=== PATIENT | male | born 1950 | race Caucasian/White ===

== ENCOUNTER 2020-12-30 11:45 | Day surgery (SDC) | payer MEDICARE, SELFPAY ==
[2020-12-30] VITALS (9 sets, daily range): BP systolic 95–177; BP diastolic 50–100; PULSE 78–108; RESP 15–22; TEMP 36.5–36.8; O2SAT 92–100
--- NOTE | ~2020-12-30 | XR_ITS ---
EXAMINATION: XR barium swallow DATE: 12/30/2020 12:49 INDICATION: Dysphagia. TECHNIQUE: The patient drank water-soluble contrast. Fluoroscopy of the hypopharynx and esophagus was performed. Fluoroscopy exposure time was 0.1 minutes. The total number of images was 4. The dose-are a product was 0.343 Gy-cm^2. COMPARISON: None. FINDINGS: The patient drank contrast and approximately vomited. There is an endoluminal mass in the m id esophagus that obstructs flow of contrast. IMPRESSION: 1. Endoluminal mass in the mid esophagus that obstructs flow of contrast, consistent with foreign bod y versus malignancy. Reviewed, dictated and finalized at location A. IMPRESSION: 1. Endoluminal mass in the mid esophagus that obstructs flow of contrast, consi stent with foreign body versus malignancy.
[2020-12-30 12:23] LABS: Basophils Absolute Auto 0.1 K/mm3 (0.0-0.1); Eosinophils Percent Auto 0.1 % (0-4.4); Hematocrit 44.1 % (42.0-52.0); Hemoglobin 14.5 g/dL (14.0-18.0); Immature Granulocyte Absolute 0.03 K/mm3 (0.00-0.031); Immature Granulocyte Percent A 0.3 % (0-0.5); Lymphocytes Absolute Auto 1.88 K/mm3 (0.9-3.2); Lymphocytes Percent Auto 18.3 % (18.3-44.2); Mean Corpuscular HGB Conc 32.9 g/dl (32-36); Mean Corpuscular Hemoglobin 29.1 pg (26-34); Mean Corpuscular Volume 88.4 fl (80-100); Monocytes Absolute Auto 0.9 K/mm3 (0.1-0.6); Monocytes Percent Auto 8.9 % (2.6-8.5); Neutrophils Absolute Auto 7.3 K/mm3 (1.3-6.7); Neutrophils Percent Auto 71.4 % (45.5-73.1); Platelet Count Result 355 k/mm3 (150-375); Red Blood Count 4.99 M/mm3 (4.6-6.20); Red Cell Distribution Width 16.9 % (11.5-14.5); White Blood Count 10.3 K/mm3 (4.5-10.0)
[2020-12-30 12:32] LABS: Alanine Aminotransferase 24 U/L (4-50); Albumin Level 4.5 g/dL (3.5-5.1); Alkaline Phosphatase 105 U/L (38-126); Anion Gap 8 mmol/L (8-16); Aspartate Amino Transferase 52 U/L (17-59); Bilirubin,Total 1.4 mg/dL (0.2-1.3); Blood Urea Nitrogen 12 mg/dL (9-20); Calcium 8.9 mg/dL (8.4-10.2); Carbon Dioxide 29 mmol/L (22-30); Chloride 105 mmol/L (98-107); Estimated CRCL calculation 74 ml/min; Estimated Glomerular Filt Rate > 60; Glucose 101 mg/dL (75-110); Lipase 34 U/L (23-300); Sodium 142 mmol/L (137-145)
[2020-12-30 12:38] LABS: Platelet Estimate Adequate (Adequate)
[2020-12-30 12:39] LABS: Poikilocytosis 1+ (NORMAL); Stomatocytes 1+ (NORMAL)
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
[2020-12-30] MEDS: LACTATED RINGERS 1,000 ML 150 ML IV CONT (14:52)
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
== END 2020-12-30 17:00 | disposition home or self-care (01) ==
LOC: ANHED 13:13 → ANHENDO 13:20
PROVIDERS: Emergency Provider Emergency Medicine; PCP Internal Medicine; Visit Provider Internal Medicine Gastroenterology
PROC: 0DJ08ZZ Inspection of Upper Intestinal Tract, Via Natural or Artificial Opening Endoscopic (ICD-10-PCS; CPT 43235; principal; 2020-12-30 14:30)
DX: T18.128A Food in esophagus causing other injury, initial encounter (principal); K21.00 Gastro-esophageal reflux disease with esophagitis, without bleeding; R11.2 Nausea with vomiting, unspecified; E03.9 Hypothyroidism, unspecified; E78.00 Pure hypercholesterolemia, unspecified; K29.70 Gastritis, unspecified, without bleeding
CPT/HCPCS: 43247; 43239; 36415; 74220; 80053; 83690; 85025; 87081; 88305; 96360; 99285; J2704; J7120

== ENCOUNTER 2022-08-27 11:54 | Outpatient (CLI) | payer MEDICARE, SELFPAY ==
[2022-08-27 18:23] LABS: Creatinine Urine 63.1 mg/dL
[2022-08-27 18:31] LABS: MALB Creatinine Ratio < 9.5 mg/g (0-30); Microalbumin Urine Random < 6.0 mg/L (0-16.7)
[2022-08-27 18:41] LABS: Alanine Aminotransferase 20 U/L (6-50); Albumin Level 4.4 g/dL (3.5-5.1); Alkaline Phosphatase 106 U/L (38-126); Anion Gap 7 mmol/L (8-16); Aspartate Amino Transferase 37 U/L (17-59); Blood Urea Nitrogen 9 mg/dL (9-20); Carbon Dioxide 30 mmol/L (22-30); Chloride 103 mmol/L (98-107); Estimated Glomerular Filt Rate > 60; Glucose 88 mg/dL (65-110); Potassium 4.1 mmol/L (3.4-5.0); Sodium 140 mmol/L (137-145)
== END 2022-08-27 11:55 | disposition home or self-care (01) ==
LOC: ANHGOSHLAB 11:55
PROVIDERS: PCP Internal Medicine; Visit Provider Nurse Practitioner
DX: M79.89 Other specified soft tissue disorders (principal)
CPT/HCPCS: 36415; 80053; 82043

== ENCOUNTER 2022-08-27 15:44 | Outpatient (CLI) | payer MEDICARE, SELFPAY ==
--- NOTE | ~2022-08-27 | US_ITS ---
Duplex Sonography of the bilateral lower extremities: Indication: Swelling, soft tissue disorder Sagittal and transverse B-mode images as well as color-flow imaging were performed on the right and l eft femoral and popliteal veins. B-mode examination was done without and with compression in the tra nsverse plane. There is good visualization of the bilateral common femoral, proximal profunda femora l, superficial femoral, greater saphenous, and popliteal veins. Normal flow was seen on color-flow im aging. Normal compressibility was demonstrated. Visualized calf veins bilaterally are also patent. Extensive subcutaneous soft tissue edema present, nonspecific. Prominent bilateral groin lymph nodes are noted, though with preserved fatty mikayla. Impression: No evidence of deep vein thrombosis involving the bilateral femoral, greater saphenous, superficial f emoral, or popliteal veins. Nonspecific subcutaneous soft tissue edema bilaterally. Prominent bilateral groin lymph nodes with preserved fatty mikayla, nonspecific. Reviewed, dictated and finalized at [facility]. RAM DIRECTOR/TRAFFIC DIRECTOR Impression: No evidence of deep vein thrombosis involving the bilateral femoral, greater sa phenous, superficial femoral, or popliteal veins. Nonspecific subcutaneous soft tissue edema bilaterally. Prominent bilateral groin lymph nodes with preserved fatty mikayla, nonspecific.
== END 2022-08-27 15:45 | disposition home or self-care (01) ==
PROVIDERS: PCP Internal Medicine; Visit Provider Nurse Practitioner
DX: M79.606 Pain in leg, unspecified (principal); R60.0 Localized edema; M79.89 Other specified soft tissue disorders
CPT/HCPCS: 36415; 80053; 82043; 93970

== ENCOUNTER 2022-09-05 08:52 | Outpatient (CLI) | payer MEDICARE, SELFPAY ==
--- NOTE | ~2022-09-05 | US_ITS ---
Limited Abdominal Sonogram: Real-time sonographic imaging of the right upper quadrant was performed. Clinical History: Abdominal swelling Findings: The liver appears normal with no evidence of mass lesion or bile duct dilatation. Main por lesli vein demonstrates normal direction of flow. The gallbladder is well distended, and and contains e chogenic gallstones. No gallbladder wall thickening. The common bile duct measures 3 mm. The pancrea s and aorta obscured by bowel gas shadowing. Impression: Cholelithiasis. Reviewed, dictated and finalized at location [facility]. AND SOIL TECHNICIAN Impression: Cholelithiasis.
== END 2022-09-05 08:53 | disposition home or self-care (01) ==
LOC: ANHIMG 08:58
PROVIDERS: PCP Internal Medicine; Visit Provider Nurse Practitioner
DX: R19.00 Intra-abdominal and pelvic swelling, mass and lump, unspecified site (principal); K80.20 Calculus of gallbladder without cholecystitis without obstruction
CPT/HCPCS: 76705

== ENCOUNTER 2022-09-17 08:52 | Outpatient (CLI) | payer MEDICARE, SELFPAY ==
--- NOTE | 2022-09-17 08:57 | ECHO_ITS ---
Patient Info Name: Micheal Rocha Age: 71 years : 1950 Gender: Male Ht: 72 in Wt: 190 lbs BSA: 2.10 m2 HR: 73 bpm BP: 141 / 92 mmHg Technical Quality: Good Exam Date: 09/17/2022 9:33 AM Exam Location: [facility] Patient Status: Outpatient Admit Date: 09/17/2022 Staff Ordering Physician: Nella Duarte NP Welding Equipment Repairer: [place] Ward RDCS Attending Provider: Nella Duarte NP Referring Physician: Gerald LAU; Exam Type: CA echo doppler color flow Study Info Indications - other specified soft tissue disorders Complete two-dimensional, color flow and Doppler transthoracic echocardiogram is performed. Summary 1. Complete two-dimensional, color flow and Doppler transthoracic echocardiogram is performed. 2. Left ventricular chamber dimension is normal. 3. Left ventricular systolic function is normal, estimated at 55-60%. 4. The left ventricular diastolic function is normal. 5. E/e' 9 is minimally elevated. 6. Left atrial chamber dimension is mildly enlarged. 7. There is mild aortic valve sclerosis. Left Ventricle E/e' 9 is minimally elevated. Left ventricular chamber dimension is normal. Left ventricular systolic function is normal, estimated at 55-60%. The left ventricular diastolic function is normal. Right Ventricle Right ventricular systolic function is normal and with normal TAPSE 1.9 cm. Right ventricular chamber dimension is normal. Left Atria Left atrial chamber dimension is mildly enlarged. Right Atria Right atrial chamber dimension is normal. Aortic Valve The aortic valve is trileaflet. There is mild aortic valve sclerosis. There is no aortic valve stenosis. There is no aortic valve regurgitation. Pulmonic Valve There is no pulmonic regurgitation. Mitral Valve There is no mitral valve stenosis. There is no mitral valve regurgitation. Tricuspid Valve There is no tricuspid valve regurgitation. Pericardium/Pleural There is no pericardial effusion. Inferior Vena Cava Normal inferior vena cava with >50% collapse upon inspiration consistent with normal right atrial pressure, 5 mmHg. Aorta The aortic root size at the sinus of Valsalva is normal. Left Ventricular Outflow Tract Name Value Normal LVOT 2D LVOT Diameter 2.0 cm LVOT Doppler LVOT Peak Gradient 4 mmHg LVOT Mean Gradient 3 mmHg LVOT VTI 25 cm LVOT VTI/AV VTI Ratio 0.8 LVOT Stroke Volume 78 ml LVOT CO 5.9 l/min LVOT CI 2.8 l/min/m2 Mitral Valve Name Value Normal MV Doppler MV Peak Gradient 4 mmHg MV Mean Gradient 2 mmHg MV Decel [place]
== END 2022-09-17 08:53 | disposition home or self-care (01) ==
PROVIDERS: PCP Internal Medicine; Visit Provider Nurse Practitioner
DX: M79.89 Other specified soft tissue disorders (principal); R06.02 Shortness of breath
CPT/HCPCS: 93306

== ENCOUNTER 2023-01-09 16:28 | Emergency (ER) | payer MEDICARE, SELFPAY ==
--- NOTE | ~2023-01-09 | XR_ITS ---
EXAM: XR hand RT min 3V, XR wrist RT min 3V DATE: 01/09/2023 16:51 HISTORY: pain/swelling FELL ONTO RIGHT HAND LAST NIGHT . COMPARISON: None available. FINDINGS: Decreased mineralization. Comminuted fracture of the third metacarpal shaft, with 3 mm lat eral displacement and minimal anterior angulation. Comminuted fracture of the fourth metacarpal shaft , with 4 mm medial displacement, one bone width posterior displacement, and 20 degrees anterior angul ation. No lytic or blastic lesion. Moderate-severe polyarticular osteoarthritis. No erosion or perios teal change. Soft tissues within normal limits. IMPRESSION: Comminuted, mildly displaced and angulated fractures of the right third and fourth metaca rpal shafts. Reviewed, dictated and finalized at [facility]. IMPRESSION: Comminuted, mildly displaced and angulated fractures of the right t hird and fourth metacarpal shafts.
[2023-01-09 16:31] VITALS: BP 121/73; PULSE 105; RESP 16; TEMP 36.6; O2SAT 96
[2023-01-09] MEDS: HYDROcodone/acetaminophen (*CRX) 5-325 MG TABLET 1 TAB PO (17:41)
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
== END 2023-01-09 18:40 | disposition home or self-care (01) ==
PROVIDERS: Emergency Provider Physician Assistant; PCP Nurse Practitioner
DX: S62.322A Displaced fracture of shaft of third metacarpal bone, right hand, initial encounter for closed fracture (principal); S62.324A Displaced fracture of shaft of fourth metacarpal bone, right hand, initial encounter for closed fracture; E03.9 Hypothyroidism, unspecified; E78.00 Pure hypercholesterolemia, unspecified; Z90.81 Acquired absence of spleen; Z87.891 Personal history of nicotine dependence; W18.09XA Striking against other object with subsequent fall, initial encounter
CPT/HCPCS: 29125; 73110; 73130; 99284; A9270

== ENCOUNTER 2023-02-12 09:53 | Emergency (ER) | payer MEDICARE, SELFPAY ==
--- NOTE | ~2023-02-12 | XR_ITS ---
XR hand RT min 3V DATE: 02/12/2023 10:22 INDICATION: Third digit swelling. Recent metacarpal fractures TECHNIQUE: 3 views COMPARISON: 01/09/2023 right hand FINDINGS: There is prominent soft tissue swelling of the third digit centered at the proximal interph alangeal joint, increased in severity since 01/2023. Is prominent osteoarthritic change including pro minent spurring at the proximal interphalangeal joint but no apparent fracture, dislocation, perioste al reaction or bone destruction. There is polyarticular osteoarthritis, most prominent at the first carpometacarpal joint. No significant change in position or alignment at the fractures of the third and fourth metacarpal kenn nakul. IMPRESSION: Nonspecific increased soft tissue swelling at the proximal interphalangeal area of the th ird digit Reviewed, dictated and finalized at location [] IMPRESSION: Nonspecific increased soft tissue swelling at the proximal interpha langeal area of the third digit
[2023-02-12 10:00] VITALS: BP 150/87; PULSE 88; RESP 16; TEMP 36.3; O2SAT 99
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
[2023-02-12 11:31] VITALS: BP 132/79; PULSE 75; O2SAT 99
== END 2023-02-12 11:31 | disposition home or self-care (01) ==
PROVIDERS: Emergency Provider Family Medicine; PCP Nurse Practitioner
DX: M19.041 Primary osteoarthritis, right hand (principal); E78.00 Pure hypercholesterolemia, unspecified; E03.9 Hypothyroidism, unspecified; Z87.891 Personal history of nicotine dependence; Z90.81 Acquired absence of spleen
CPT/HCPCS: 73130; 99283

== ENCOUNTER 2023-12-25 03:55 | Emergency (ER) | payer MEDICARE, SELFPAY ==
--- NOTE | ~2023-12-25 | CT_ITS ---
CT head without contrast Indication: Head injury Technique: Serial scans were obtained through the brain without the administration of contrast. Dose reduction technique was used on this scan by utilizing automated exposure control and iterative recon struction technique. The dose-length product (DLP) was 605.33 mGy-cm. Findings: There is no evidence of intracranial hemorrhage, mass lesion, or acute infarct. The ventri cles and subarachnoid spaces are unremarkable. Low attenuation regions are seen within the periventr icular white matter bilaterally, likely representing changes from chronic microvascular ischemic dise ase. There is no evidence of edema, mass effect or midline shift. The visualized paranasal sinuses and mastoid air cells are clear. Impression: No intracranial hemorrhage, mass, or acute infarct. Mild chronic white matter changes, as above. Reviewed, dictated and finalized at location . Impression: No intracranial hemorrhage, mass, or acute infarct. Mild chronic white matter changes, as above.
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
[2023-12-25 04:45] VITALS: BP 138/86; PULSE 95; RESP 16; TEMP 36.9; O2SAT 97
[2023-12-25] MEDS: TETANUS,DIPHTHERIA,AC PERTUSSIS ADULT (0.5 ML) BOOSTRIX IM (05:45)
== END 2023-12-25 05:51 | disposition home or self-care (01) ==
PROVIDERS: Emergency Provider Emergency Medicine; PCP Nurse Practitioner
DX: S00.83XA Contusion of other part of head, initial encounter (principal); S00.81XA Abrasion of other part of head, initial encounter; Z23 Encounter for immunization; E03.9 Hypothyroidism, unspecified; E78.00 Pure hypercholesterolemia, unspecified; Z87.891 Personal history of nicotine dependence; Z90.81 Acquired absence of spleen; W01.198A Fall on same level from slipping, tripping and stumbling with subsequent striking against other object, initial encounter
CPT/HCPCS: 70450; 90471; 90715; 99284

== ENCOUNTER 2024-04-13 23:16 | Emergency (ER) | payer MEDICARE, SELFPAY ==
[2024-04-13 23:14] VITALS: BP 117/76; PULSE 72; RESP 16; TEMP 36.6; O2SAT 98
[2024-04-14 00:14] LABS: Add Urine Microscopic? NO; Appearance Urine Clear (Clear); Bilirubin Urine Negative (Negative); Blood Urine Negative (Negative); Color Urine Yellow (Yellow); Glucose Urine UA Negative (Negative); Ketones Urine Negative (Negative); Leukocyte Esterase Ur Negative LEU/UL (Negative); Nitrate Urine Negative (Negative); Protein Urine Negative (Negative); Specific Grav Ur 1.003 (1.001-1.035); Urobilinogen Urine 0.2 mg/dL (<2.0)
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
--- NOTE | 2024-04-14 01:03 | PC.NURSE ---
pt continues to climb out of bed and is not following commands. edp lipsmeyer to bedside. pt placed back in bed and security standing at bedside.
--- NOTE | 2024-04-14 01:14 | PC.NURSE ---
pt refused iv but allowed tech to draw blood straight stick. ilya denis knows.
[2024-04-14 01:23] LABS: Basophils Absolute Auto 0.1 K/mm3 (0.0-0.1); Basophils Percent Auto 1.4 % (0.2-1.2); Eosinophils Absolute Auto 0.2 K/mm3 (0-0.3); Hemoglobin 15.2 g/dL (14.0-18.0); Immature Granulocyte Absolute 0.01 K/mm3 (0.00-0.031); Immature Granulocyte Percent A 0.1 % (0-0.5); Immature Platelet Fraction Pct 6.5 % (0.9-11.2); Lymphocytes Absolute Auto 4.02 K/mm3 (0.9-3.2); Lymphocytes Percent Auto 54.5 % (18.3-44.2); Mean Corpuscular HGB Conc 33.8 g/dl (32-36); Mean Corpuscular Hemoglobin 30.6 pg (26-34); Mean Corpuscular Volume 90.7 fl (80-100); Mean Platelet Volume 10.3 fl (7.4-10.4); Monocytes Absolute Auto 0.5 K/mm3 (0.1-0.6); Monocytes Percent Auto 6.4 % (2.6-8.5); Neutrophils Absolute Auto 2.6 K/mm3 (1.3-6.7); Neutrophils Percent Auto 35.6 % (45.5-73.1); Platelet Count Result 298 k/mm3 (150-375); Red Blood Count 4.96 M/mm3 (4.6-6.20); Red Cell Distribution Width 14.6 % (11.5-14.5); White Blood Count 7.4 K/mm3 (4.5-10.0)
[2024-04-14 01:36] LABS: Ethanol 241 mg/dL (<10)
[2024-04-14 01:37] LABS: Alanine Aminotransferase 31 U/L (6-50); Albumin Level 5.1 g/dL (3.5-5.1); Alkaline Phosphatase 88 U/L (38-126); Anion Gap 17 mmol/L (4-12); Aspartate Amino Transferase 38 U/L (17-59); Bilirubin,Total 0.9 mg/dL (0.2-1.3); Blood Urea Nitrogen 7 mg/dL (9-20); Calcium 9.6 mg/dL (8.4-10.2); Carbon Dioxide 25 mmol/L (22-30); Chloride 96 mmol/L (98-107); Estimated CRCL calculation 86 ml/min; Estimated Glomerular Filt Rate > 60; Glucose 105 mg/dL (65-110); Potassium 3.9 mmol/L (3.4-5.0); Sodium 138 mmol/L (137-145)
--- NOTE | 2024-04-14 02:33 | PC.NURSE ---
pt currently asleep. Security removed from pt room.
--- NOTE | 2024-04-14 05:55 | PC.NURSE ---
pt remains unsteady on his feet, 1 assist to the bathroom. 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
[2024-04-14 09:10] VITALS: BP 137/78; PULSE 98; RESP 16; TEMP 36.6; O2SAT 99
== END 2024-04-14 09:10 | disposition home or self-care (01) ==
PROVIDERS: Emergency Provider Emergency Medicine; PCP Nurse Practitioner
DX: F10.129 Alcohol abuse with intoxication, unspecified (principal); Z87.891 Personal history of nicotine dependence; Y90.8 Blood alcohol level of 240 mg/100 ml or more
CPT/HCPCS: 36415; 80053; 80307; 81003; 85025; 85055; 99283

== ENCOUNTER 2024-08-12 05:55 | Emergency (ER) | payer MEDICARE, SELFPAY ==
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
[2024-08-12 22:46] VITALS: TEMP 35
--- NOTE | 2024-08-12 22:52 | ECG_ITS ---
Rate 100 CA 199 QRSd 122 QT 351 QTc 454 P 54 QRS -48 T 48 Severity: Abnormal ECG SINUS TACHYCARDIA LEFT ATRIAL ENLARGEMENT [-0.15mV P WAVE IN V1/V2] MARKED LEFT AXIS DEVIATION [QRS AXIS < -30] MODERATE INTRAVENTRICULAR CONDUCTION DELAY [110+ ms QRS DURATION] BASELINE ARTIFACT LIMITS INTERPRETATION No previous ECG available for comparison Electronically Signed On 08-13-2024 12:33:31 WIRE COILER by Medhat ESTRELLA
[2024-08-12 22:59] VITALS: BP 156/88; PULSE 75; RESP 17; O2SAT 95
[2024-08-12 23:11] VITALS: PULSE 103
[2024-08-12] MEDS: TETANUS,DIPHTHERIA,AC PERTUSSIS ADULT (0.5 ML) BOOSTRIX IM (23:13)
[2024-08-12 23:42] VITALS: TEMP 35
[2024-08-12 23:57] VITALS: TEMP 36.4
[2024-08-13 00:20] VITALS: TEMP 36.4
--- NOTE | 2024-08-13 00:49 | PC.NURSE ---
Patients wound on head cleaned with normal saline and hydrogen peroxide.
[2024-08-13 02:45] VITALS: BP 108/64; PULSE 100; RESP 14; O2SAT 100
[2024-08-13 04:52] VITALS: BP 113/87; PULSE 98; RESP 13; O2SAT 99
[2024-08-13 09:00] VITALS: BP 138/88; PULSE 88; RESP 18; TEMP 36.4; O2SAT 96
[2024-08-13 14:22] LABS: Amphetamine Screen Urine Negative (Negative); Barbiturate Screen Urine Negative (Negative); Benzodiazepines Screen Urine Negative (Negative); Cannabinoid Screen Urine Negative (Negative); Cocaine Screen Urine Negative (Negative); Methadone Screen Urine Negative (Negative); Opiate Screen Urine Negative (Negative); Phencyclidine Screen Urine Negative (Negative)
[2024-08-13 14:27] LABS: Hematocrit 43.3 % (42.0-52.0); Hemoglobin 14.5 g/dL (14.0-18.0); Immature Granulocyte Percent A 0.3 % (0-0.5); Mean Corpuscular HGB Conc 33.5 g/dl (32-36); Mean Corpuscular Hemoglobin 30.9 pg (26-34); Mean Corpuscular Volume 92.3 fl (80-100); Mean Platelet Volume 10.6 fl (7.4-10.4); Neutrophils Percent Auto 53.2 % (45.5-73.1); Platelet Count Result 240 k/mm3 (150-375); Red Blood Count 4.69 M/mm3 (4.6-6.20); Red Cell Distribution Width 14.5 % (11.5-14.5); White Blood Count 9.8 K/mm3 (4.5-10.0)
[2024-08-13 14:28] LABS: Basophils Absolute Auto 0.1 K/mm3 (0.0-0.1); Basophils Percent Auto 0.9 % (0.2-1.2); Eosinophils Absolute Auto 0.1 K/mm3 (0-0.3); Eosinophils Percent Auto 1.2 % (0-4.4); Immature Granulocyte Absolute 0.03 K/mm3 (0.00-0.031); Lymphocytes Absolute Auto 3.65 K/mm3 (0.9-3.2); Lymphocytes Percent Auto 37.2 % (18.3-44.2); Monocytes Absolute Auto 0.7 K/mm3 (0.1-0.6); Monocytes Percent Auto 7.2 % (2.6-8.5); Neutrophils Absolute Auto 5.2 K/mm3 (1.3-6.7)
[2024-08-13 14:29] LABS: Anion Gap 11 mmol/L (4-12); Blood Urea Nitrogen 8 mg/dL (9-20); Carbon Dioxide 26 mmol/L (22-30); Chloride 99 mmol/L (98-107); Ethanol 228 mg/dL (<10); Potassium 4.1 mmol/L (3.4-5.0); Sodium 136 mmol/L (137-145)
[2024-08-13 14:30] LABS: Alanine Aminotransferase 28 U/L (6-50); Albumin Level 4.5 g/dL (3.5-5.1); Alkaline Phosphatase 88 U/L (38-126); Aspartate Amino Transferase 38 U/L (17-59); Bilirubin,Total 0.7 mg/dL (0.2-1.3); Calcium 8.4 mg/dL (8.4-10.2); Estimated Glomerular Filt Rate > 60; Glucose 114 mg/dL (65-110)
[2024-08-13 14:31] LABS: Appearance Urine Clear (Clear); Blood Urine Negative (Negative); Color Urine Yellow (Yellow); Glucose Urine UA Negative (Negative); Ketones Urine Negative (Negative); Nitrate Urine Negative (Negative); Protein Urine Negative (Negative); Specific Grav Ur 1.006 (1.001-1.035)
[2024-08-13 14:32] LABS: Add Urine Microscopic? NO; Bilirubin Urine Negative (Negative); Leukocyte Esterase Ur Negative LEU/UL (Negative); Urobilinogen Urine 0.2 mg/dL (<2.0)
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
== END 2024-08-13 06:16 | disposition home or self-care (01) ==
PROVIDERS: Emergency Provider Emergency Medicine; PCP Nurse Practitioner
DX: S01.01XA Laceration without foreign body of scalp, initial encounter (principal); F10.129 Alcohol abuse with intoxication, unspecified; Y90.7 Blood alcohol level of 200-239 mg/100 ml; E03.9 Hypothyroidism, unspecified; E78.00 Pure hypercholesterolemia, unspecified; Z90.81 Acquired absence of spleen; Z87.891 Personal history of nicotine dependence; Z79.899 Other long term (current) drug therapy; W18.30XA Fall on same level, unspecified, initial encounter
CPT/HCPCS: 12001; 36415; 70450; 71250; 72125; 74176; 80053; 80307; 81003; 82077; 85025; 93005; 99284

== ENCOUNTER 2024-08-20 11:06 | Emergency (ER) | payer MEDICARE, SELFPAY ==
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
[2024-08-20 11:52] VITALS: BP 125/81; PULSE 76; RESP 18; TEMP 36.7; O2SAT 97
== END 2024-08-20 11:57 | disposition home or self-care (01) ==
LOC: ANHED 11:56
PROVIDERS: Emergency Provider Physician Assistant; PCP Nurse Practitioner
DX: S01.91XD Laceration without foreign body of unspecified part of head, subsequent encounter (principal); X58.XXXD Exposure to other specified factors, subsequent encounter
CPT/HCPCS: 15853; 99282

== ENCOUNTER 2025-01-31 00:02 | Emergency (ER) | payer MEDICARE, SELFPAY ==
[2025-01-30 23:59] VITALS: BP 127/84; PULSE 92; RESP 15; TEMP 36.8; O2SAT 100
--- NOTE | ~2025-01-31 | CT_ITS ---
History: Fall PROCEDURE: CT cervical spine without intravenous contrast. COMPARISON: 08/12/2024 TECHNIQUE: Multiple contiguous axial images of the cervical spine were performed without the administration of i ntravenous contrast. DLP: 185 mGy-cm FINDINGS: Severe degenerative disease is identified, with osteophyte formation, disc space narrowing, endplate changes and vacuum phenomena. Compression of the superior endplate of T2 is identified, unchanged from prior. No acute fractures are appreciated. The bilateral lung apices are unremarkable. No soft tissue abnormality is present. The airway is patent. Impression: Severe degenerative disease, without acute fracture. Reviewed, dictated and finalized at location A. Impression: Severe degenerative disease, without acute fracture.
--- NOTE | ~2025-01-31 | CT_ITS ---
History: Fall PROCEDURE: CT head without contrast. COMPARISON: 08/12/2024 TECHNIQUE: Axial imaging of the head performed from the skull base to the vertex without IV contrast. Sagittal a nd coronal reformations obtained. DLP: 681 mGy-cm FINDINGS: The ventricles are enlarged. The dilatation of the ventricles is proportional to the degree of sulcal prominence, not uncommon in the senescent brain. Decreased attenuation is identified within the periventricular white matter, likely secondary to micr ovascular ischemic disease, in a patient of this age. There is no mass, mass effect or midline shift. There is no abnormal extra-axial fluid collection or intracranial hemorrhage. Mucoperiosteal thickening within the bilateral ethmoid sinuses. Remaining paranasal sinuses are unremarkable. The mastoid air cells are well aerated. No acute displaced fractures within the overlying cranium. Right posterior parietal scalp hematoma. Impression: No acute intracranial hemorrhage or suspicious mass effect. Inflammatory sinus disease. Posterior parietal scalp hematoma. Reviewed, dictated and finalized at location A. Impression: No acute intracranial hemorrhage or suspicious mass effect. Inflammatory sinus disease. Posterior parietal scalp hematoma.
[2025-01-31] MEDS: ACETAMINOPHEN 500 MG TABLET 1000 MG PO (01:22)
[2025-01-31 03:50] VITALS: BP 123/87; PULSE 81; RESP 16; O2SAT 98
[2025-01-31 04:38] VITALS: BP 132/83; PULSE 86; RESP 16; O2SAT 98
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
[2025-01-31] MEDS: TETANUS,DIPHTHERIA,AC PERTUSSIS ADULT (0.5 ML) BOOSTRIX IM (05:46)
[2025-01-31 05:57] LABS: Add Urine Microscopic? YES; Appearance Urine Clear (Clear); Bacteria Urine None Seen /hpf; Bilirubin Urine Negative (Negative); Blood Urine Trace (Negative); Color Urine Yellow (Yellow); Glucose Urine UA Negative (Negative); Ketones Urine Negative (Negative); Leukocyte Esterase Ur Negative LEU/UL (Negative); Need Manual Microscopic Reviewed; Nitrate Urine Negative (Negative); Non Pathogenic Casts 0-2; Protein Urine Negative (Negative); RBC Urine 0-2 /hpf (0-2); Specific Grav Ur 1.003 (1.001-1.035); Squamous Epithelial Cell Urine None Seen /hpf (Few); Urobilinogen Urine 0.2 mg/dL (<2.0); WBC Urine 0-5 /hpf (0-3)
[2025-01-31 06:08] LABS: Ethanol 156 mg/dL (<10)
[2025-01-31 06:49] LABS: Amphetamine Screen Urine Negative (Negative); Barbiturate Screen Urine Negative (Negative); Benzodiazepines Screen Urine Negative (Negative); Cannabinoid Screen Urine Negative (Negative); Cocaine Screen Urine Negative (Negative); Methadone Screen Urine Negative (Negative); Opiate Screen Urine Negative (Negative); Phencyclidine Screen Urine Negative (Negative)
== END 2025-01-31 07:59 | disposition home or self-care (01) ==
PROVIDERS: Emergency Provider Student in an Organized Health Care Education/Training Program; PCP Nurse Practitioner
DX: S00.01XA Abrasion of scalp, initial encounter (principal); S02.2XXA Fracture of nasal bones, initial encounter for closed fracture; F10.129 Alcohol abuse with intoxication, unspecified; Y90.6 Blood alcohol level of 120-199 mg/100 ml; Z23 Encounter for immunization; I25.10 Atherosclerotic heart disease of native coronary artery without angina pectoris; I48.20 Chronic atrial fibrillation, unspecified; I10 Essential (primary) hypertension; E78.2 Mixed hyperlipidemia; E11.40 Type 2 diabetes mellitus with diabetic neuropathy, unspecified; M10.9 Gout, unspecified; G47.33 Obstructive sleep apnea (adult) (pediatric); N40.0 Benign prostatic hyperplasia without lower urinary tract symptoms; Z96.659 Presence of unspecified artificial knee joint; Z95.5 Presence of coronary angioplasty implant and graft; Z96.653 Presence of artificial knee joint, bilateral; Z98.41 Cataract extraction status, right eye; Z87.891 Personal history of nicotine dependence; Z98.42 Cataract extraction status, left eye; Z90.81 Acquired absence of spleen; Z79.899 Other long term (current) drug therapy; W13.8XXA Fall from, out of or through other building or structure, initial encounter
CPT/HCPCS: 36415; 70450; 72125; 80307; 81001; 82077; 90471; 90715; 99284; A9270

== ENCOUNTER 2025-03-20 17:00 | Emergency (ER) | payer MEDICARE, SELFPAY ==
[2025-03-20] VITALS (7 sets, daily range): BP systolic 114–156; BP diastolic 70–99; PULSE 52–82; RESP 14–16; TEMP 36.4; O2SAT 95–98
--- NOTE | ~2025-03-20 | CT_ITS ---
CT cervical spine wo con Ordering provider: José Miguel Ward History: . fall . Comparison: Jan 31 2025 Technique: CT of the cervical spine was performed without contrast. Sagittal and coronal reformatted images were also obtained and reviewed. Automated exposure control and iterative reconstruction malka hnique were employed. The dose-length product was 213.20 mGy-cm. FINDINGS: VERTEBRAE: No subluxation or acute fracture. The occipital condyles are intact. DISC SPACES: Degenerative disc disease with narrowing at the level of C3-C4. Multilevel facet joint d isease. Multilevel uncovertebral joint osteoarthritic changes. Multilevel intervertebral foraminal na rrowing. PARASPINOUS SOFT TISSUES: Normal. IMPRESSION: No acute osseous abnormality cervical spine. Degenerative disc disease at the level of C3-C4. Multilevel facet joint disease. Reviewed, dictated and finalized at location A. IMPRESSION: No acute osseous abnormality cervical spine. Degenerative disc disease at the level of C3-C4. Multilevel facet joint disease .
--- NOTE | ~2025-03-20 | XR_ITS ---
XR wrist RT min 3V Ordering provider: José Miguel Ward MD History: . injury . Comparison: February 12, 2023 FINDINGS: BONES: Healing fracture in the midshaft of the third and fourth metacarpal bones. Osteopenia of the b ones. JOINT SPACES: Osteoarthritic changes involving the proximal interphalangeal joint, radiocarpal joint and first carpometacarpal joint. SOFT TISSUES: Normal. IMPRESSION: Healing fractures in the third and fourth metacarpal bones. Polyarticular osteoarthritic changes. Reviewed, dictated and finalized at location A.
--- NOTE | ~2025-03-20 | CT_ITS ---
CT brain wo con Ordering provider: José Miguel Ward History: 74 years Male with . fall . Comparison: January 31, 2025 Technique: CT of the head without contrast. Radiation reduction technique utilized. The dose-length product was 605.33 mGy-cm. FINDINGS: BRAIN PARENCHYMA AND CSF SPACES: Mild leukoaraiosis and diffuse cortical atrophy. Mild atheromatous d isease. No midline shift, mass effect or hemorrhage. The brain parenchyma and CSF spaces are otherwi se normal. VISUALIZED PARANASAL SINUSES: Bilateral maxillary and ethmoid sinus disease. Right nasal septal devia tion. Well aerated. MASTOIDS: Well aerated. BONES: The bones appear intact. SOFT TISSUES: Visualized nasopharynx is normal. Right Frontal scalp hematoma. Otherwise, Superficial soft tissues are normal. IMPRESSION: No acute intracranial findings. Reviewed, dictated and finalized at location A.
--- NOTE | 2025-03-20 18:37 | ED.GENADULT ---
HPI - General Adult General Chief complaint: Fall <Dorian Carr MD - Last Filed: 03/20/25 19:46> Stated complaint: glf, unknown down time? <Dorian Carr MD - Last Filed: 03/20/25 19:46> Time Seen by Provider: 03/20/25 18:05 <Dorian Carr MD - Last Filed: 03/20/25 19:46> History of Present Illness HPI narrative: This is a 74-year-old male presenting after a ground level fall. Patient admits drinking a large amount of alcohol. He does not remember the fall. He has abrasions over the right side of his face. Patient is order a and swearing at me during the interview. He is moving all 4 extremities. He has no other complaints other than S2 medial even lung. <Dorian Carr MD - Last Filed: 03/20/25 19:46> Related Data Home medications: Home Medications ?Medication ?Instructions ?Recorded ?Confirmed ?Last Taken ?Type vitamin B complex (B 1 tablet PO DAILY 05/30/22 02/10/24 Unknown History Complex-Vitamin B12 tablet) <Dorian Carr MD - Last Filed: 03/20/25 19:46> Allergies/adverse reactions: Allergies Allergy/AdvReac Type Severity Reaction Status Date / Time No Known Allergies Allergy Unverified 11/15/22 17:09 <Dorian Carr MD - Last Filed: 03/20/25 19:46> [facility] Past Medical History Medical History: Medical History Food impaction of esophagus Serum potassium elevated Hypercholesterolemia Head injury head wound from slipping on bus Methicillin susceptible Staphylococcus aureus infection Degenerative joint disease Gout Benign prostatic hyperplasia Obstructive sleep apnea Does not use CPAP. Coronary artery disease Chronic atrial fibrillation previously on chronic anticoagulation per review of EMR; discontinued Essential (primary) hypertension Hypothyroidism (acquired) Mixed hyperlipidemia Polycythemia Type 2 diabetes mellitus with diabetic neuropathy, unspecified <Dorian Carr MD - Last Filed: 03/20/25 19:46> Surgical History Surgical History: Surgical History History of splenectomy History of bilateral cataract extraction History of arthroscopy of both knees History of carpal tunnel release History of revision of total replacement of knee joint History of coronary angioplasty with insertion of stent History of bilateral knee replacement History of cardioversion <Dorian Carr MD - Last Filed: 03/20/25 19:46> Family History Family History: Family History Father Malignant neoplasm of prostate Mother Breast cancer Other Diabetes mellitus Family history of arthritis Hypertension <Dorian Carr MD - Last Filed: 03/20/25 19:46> Social History Social History: Social History Smoking status: Former smoker Alcohol intake: current Lack of Transportation: No Lack of Food: Never True Current Housing: I Have Housing Concerned About Future Housing: No Difficulty Paying Gas/Electric Bills: No Difficulty Paying for Meds: No Currently Unemployed: No Education: High School Diploma/GED Difficulty w/ Childcare or Family Care: No <Dorian Carr MD - Last Filed: 03/20/25 19:46> Exam Narrative: APPEARANCE: No apparent distress. Smells of alcohol Head: Forehead hematoma with abrasions over the forehead and lateral orbit EYES: Extraocular eye movements intact NOSE: Atraumatic NECK: Trachea midline RESPIRATORY: No increased rate of breathing CTAB CARDIOVASCULAR: RRR, ABDOMINAL: Non-distended MUSCULOSKELETAl: No obvious deformities NEURO: Alert. Moving 4/4 extremities to command SKIN:: Warm, dry. Normal color PSYCHIATRIC: Normal affect <Dorian Carr MD - Last Filed: 03/20/25 19:46> Course Vital Signs Vital signs: Vital Signs Temperature 97.6 F 03/20/25 17:02 Pulse Rate 82 03/20/25 17:02 Respiratory Rate 16 03/20/25 17:02 Blood Pressure 114/70 03/20/25 17:02 Pulse Oximetry 95 03/20/25 17:02 Oxygen Delivery Room Air 03/20/25 17:02 Temperature 97.6 F 03/20/25 17:02 Pulse Rate 70 03/21/25 00:01 Respiratory Rate 18 03/21/25 00:01 Blood Pressure 139/92 H 03/21/25 00:01 Pulse Oximetry 97 07/14/25 00:01 Oxygen Delivery Room Air 03/20/25 17:02 <Dorian Carr MD - Last Filed: 03/20/25 19:46> Vital Signs Temperature 97.6 F 03/20/25 17:02 Pulse Rate 82 03/20/25 17:02 Respiratory Rate 16 03/20/25 17:02 Blood Pressure 114/70 03/20/25 17:02 Pulse Oximetry 95 03/20/25 17:02 Oxygen Delivery Room Air 03/20/25 17:02 Temperature 97.6 F 03/20/25 17:02 Pulse Rate 70 03/21/25 00:01 Respiratory Rate 18 03/21/25 00:01 Blood Pressure 139/92 H 03/21/25 00:01 Pulse Oximetry 97 03/21/25 00:01 Oxygen Delivery Room Air 03/20/25 17:02 <Tiago Grace MD - Last Filed: 03/21/25 01:36> Medical Decision Making MDM Narrative Medical decision making narrative: -Course: 74-year-old male presenting intoxicated after ground level fall. Alcohol level 214. CT head negative. X-ray of the wrist unremarkable. Patient signed out to the oncoming physician pending sobriety/reevaluation and CT C-spine. Expect discharge. <Dorian Carr MD - Last Filed: 03/20/25 19:46> -Course: 74-year-old male presenting intoxicated after ground level fall. Alcohol level 214. CT head negative. X-ray of the wrist unremarkable. Patient signed out to the oncoming physician pending sobriety/reevaluation and CT C-spine. Expect discharge. Patient was signed out to me pending clinical sobriety. Attempted to contact family members for a sober ride, however, the only person listed under patient's chart is patient's mother and were unsuccessful in reaching her. Repeat ethanol level was noted to be 118. Shortly after, patient started to become aggressive with staff and is yelling. Security was called to bedside. PD did arrive and informed us that they will take the patient home and willing to give him a ride. Patient was discharged to PD custody in stable condition. <Tiago Grace MD - Last Filed: 03/21/25 01:36> Vital Signs Vital Signs: Vital Signs Temperature 97.6 F 03/20/25 17:02 Pulse Rate 82 03/20/25 17:02 Respiratory Rate 16 03/20/25 17:02 Blood Pressure 114/70 03/20/25 17:02 Pulse Oximetry 95 03/20/25 17:02 Oxygen Delivery Room Air 03/20/25 17:02 Temperature 97.6 F 03/20/25 17:02 Pulse Rate 70 03/21/25 00:01 Respiratory Rate 18 03/21/25 00:01 Blood Pressure 139/92 H 03/21/25 00:01 Pulse Oximetry 97 03/21/25 00:01 Oxygen Delivery Room Air 03/20/25 17:02 <Dorian Carr MD - Last Filed: 03/20/25 19:46> Vital Signs Temperature 97.6 F 03/20/25 17:02 Pulse Rate 82 03/20/25 17:02 Respiratory Rate 16 03/20/25 17:02 Blood Pressure 114/70 03/20/25 17:02 Pulse Oximetry 95 03/20/25 17:02 Oxygen Delivery Room Air 03/20/25 17:02 Temperature 97.6 F 03/20/25 17:02 Pulse Rate 70 03/21/25 00:01 Respiratory Rate 18 03/21/25 00:01 Blood Pressure 139/92 H 03/21/25 00:01 Pulse Oximetry 97 03/21/25 00:01 Oxygen Delivery Room Air 03/20/25 17:02 <Tiago Grace MD - Last Filed: 03/21/25 01:36> Lab Data Labs: Lab Results 03/20/25 03/21/25 Range/Units 18:53 00:07 Ethyl Alcohol 214 118 (<10) mg/dL <Dorian Carr MD - Last Filed: 03/20/25 19:46> Lab Results 03/20/25 03/21/25 Range/Units 18:53 00:07 Ethyl Alcohol 214 118 (<10) mg/dL <Tiago Grace MD - Last Filed: 03/21/25 01:36> Discharge Plan Discharge Clinical Impression: Fall, Abrasion, Elevated ETOH level <Dorian Carr MD - Last Filed: 03/20/25 19:46> Patient Disposition: Home <Dorian Carr MD - Last Filed: 03/20/25 19:46> Condition: Stable <Dorian Carr MD - Last Filed: 03/20/25 19:46> Instructions: Antibiotic Form, Fall Prevention for Older Adults (ED), Alcohol Intoxication (ED) <Dorian Carr MD - Last Filed: 03/20/25 19:46> Additional Instructions: Please follow-up with your primary care physician. Return if you develop any new or worsening symptoms. Please drink responsibly. <Dorian Carr MD - Last Filed: 03/20/25 19:46> Patient Language: [place]se <Dorian Carr MD - Last Filed: 03/20/25 19:46> Prescriptions: No Action vitamin B complex [B Complex-Vitamin B12] Tablet 1 tablet PO DAILY ibuprofen 600 mg tablet 600 mg PO TID PRN (Reason: pain) Qty: 20 0RF acetaminophen 500 mg capsule 1,000 mg PO Q6H PRN (Reason: pain) Qty: 20 0RF [place] Saline 0.65 % drops 2 drp intranasal QID PRN (Reason: nasal congestion) Qty: 50 0RF furosemide 40 mg tablet 40 mg PO QAM Qty: 90 1RF levothyroxine 75 mcg tablet See Rx Instructions .ROUTE .COMPLEX Qty: 90 0RF Dose Instruction: TAKE 1 TABLET BY MOUTH DAILY Rx Instructions: TAKE 1 TABLET BY MOUTH DAILY atorvastatin 20 mg tablet 20 mg PO DAILY Qty: 90 0RF Rx Instructions: NEEDS APPOINTMENT FOR FURTHER REFILLS <Dorian Carr MD - Last Filed: 03/20/25 19:46> Follow-up/Referrals: Nella Duarte, [facility] EN[facility] [Primary Care Provider] - <Dorian Carr MD - Last Filed: 03/20/25 19:46> Time of Disposition: 01:35 <Dorian Carr MD - Last Filed: 03/20/25 19:46> 01:35 <Tiago Grace MD - Last Filed: 03/21/25 01:36>
[2025-03-20] MEDS: LIDOCAINE, EPINEPHRINE, TETRACAINE VISCOUS SOLN 3 ML TOPICAL (19:20)
--- NOTE | 2025-03-20 23:16 | PC.NURSE ---
Report to Naomie GONZALES
--- NOTE | 2025-03-20 23:22 | PC.NURSE ---
Report received from CHRISTIAN Steen. Assumed care of patient at this time.
[2025-03-21 00:01] VITALS: BP 139/92; PULSE 70; RESP 18; O2SAT 97
--- NOTE | 2025-03-21 01:17 | PC.NURSE ---
Patient repeatedly getting out of bed, yelling, screaming and being verbally aggressive with staff and security. internet project manager called Fel[facility] SANCHEZ and PD on the way to take patient.
--- NOTE | 2025-03-21 01:19 | PC.NURSE ---
PD here and in room with patient and security. science writer notified.
--- NOTE | 2025-03-21 01:31 | PC.NURSE ---
[place] PD did take patient away from premises. Patient left with PD with steady unassisted gait. physical therapy aides teacher aware.
== END 2025-03-21 01:39 | disposition home or self-care (01) ==
PROVIDERS: Emergency Medicine; Emergency Provider Emergency Medicine; PCP Nurse Practitioner
DX: S00.211A Abrasion of right eyelid and periocular area, initial encounter (principal); S00.83XA Contusion of other part of head, initial encounter; F10.129 Alcohol abuse with intoxication, unspecified; Y90.7 Blood alcohol level of 200-239 mg/100 ml; I25.10 Atherosclerotic heart disease of native coronary artery without angina pectoris; I48.20 Chronic atrial fibrillation, unspecified; I10 Essential (primary) hypertension; E03.9 Hypothyroidism, unspecified; E78.2 Mixed hyperlipidemia; E11.40 Type 2 diabetes mellitus with diabetic neuropathy, unspecified; N40.0 Benign prostatic hyperplasia without lower urinary tract symptoms; G47.33 Obstructive sleep apnea (adult) (pediatric); M10.9 Gout, unspecified; Z95.1 Presence of aortocoronary bypass graft; Z96.653 Presence of artificial knee joint, bilateral; Z87.891 Personal history of nicotine dependence; Z90.81 Acquired absence of spleen; Z98.42 Cataract extraction status, left eye; Z98.41 Cataract extraction status, right eye; Z79.899 Other long term (current) drug therapy; W19.XXXA Unspecified fall, initial encounter
CPT/HCPCS: 36415; 70450; 72125; 73110; 82077; 99284

== ENCOUNTER 2025-03-24 21:30 | Emergency (ER) | payer OTHER, MEDICARE, SELFPAY ==
[2025-03-24] VITALS (7 sets, daily range): BP systolic 105–131; BP diastolic 82–84; PULSE 79–85; RESP 16–23; O2SAT 97–100
--- NOTE | ~2025-03-24 | CT_ITS ---
EXAMINATION: CT brain wo con DATE: 03/24/2025 22:18 INDICATION: Trauma, AMS, head wound . TECHNIQUE: Computed tomography (CT) of the head was performed without intravenous contrast. The mA wa s adjusted according to patient size. Iterative reconstruction technique was employed. The dose-lengt h product was 681.00 mGy-cm. COMPARISON: 03/20/2025. FINDINGS: No acute intracranial hemorrhage or extra-axial fluid collection. No hydrocephalus, mass, or herniation. No acute ischemic infarct. Unremarkable dural venous sinus attenuation. No acute osseous abnormality. Left parietal scalp laceration/contusion. Resolving right frontal contu regis. Mild ethmoid and maxillary sinus mucosal thickening, the remaining aerated spaces are clear. Moderate atrophy and chronic white matter change. Atherosclerotic intracranial calcification. Old zack al bone fractures. IMPRESSION: No acute intracranial process. Reviewed, dictated and finalized at location K.
--- NOTE | 2025-03-24 21:34 | ED.HEATRA ---
HPI - Head Injury General Chief complaint: Fall Stated complaint: ETOH+, FALL, HEAD LAC, COMBATIVE WITH EMS History of Present Illness HPI Narrative: 74-year-old male with a past medical history including alcohol abuse and recently here in the emergency department on the after a fall secondary to alcohol intoxication with scattered abrasions but no significant findings on workup. Today presents via EMS with police escort secondary to belligerent behavior, mental status changes and suspected alcohol intoxication with head trauma. He has a large laceration to the top of his scalp and dry blood around his scalp and face. Old injury with bruising to his abrasions noted from previous exam on the right side. He is belligerent, combative with staff, swinging at staff and required chemical restraint upon arrival to the emergency department. GCS 15, A&O 1 to his name. Collateral formation provided by EMS and police, patient not cooperative with history or review of systems questions. Further information provided by review of EMR. He was intoxicated several days ago and discharged with police custody after he became combative with staff and unremarkable workup in the ED. Related Data Home Medications ?Medication ?Instructions ?Recorded ?Confirmed ?Last Taken ?Type vitamin B complex (B 1 tablet PO DAILY 05/30/22 02/10/24 Unknown History Complex-Vitamin B12 tablet) Allergies Allergy/AdvReac Type Severity Reaction Status Date / Time No Known Allergies Allergy Unverified 11/15/22 17:09 Review of Systems Review of Systems: As reviewed above in HPI [facility] Past Medical History Medical History Food impaction of esophagus Serum potassium elevated Hypercholesterolemia Head injury head wound from slipping on bus Methicillin susceptible Staphylococcus aureus infection Degenerative joint disease Gout Benign prostatic hyperplasia Obstructive sleep apnea Does not use CPAP. Coronary artery disease Chronic atrial fibrillation previously on chronic anticoagulation per review of EMR; discontinued Essential (primary) hypertension Hypothyroidism (acquired) Mixed hyperlipidemia Polycythemia Type 2 diabetes mellitus with diabetic neuropathy, unspecified Surgical History Surgical History History of splenectomy History of bilateral cataract extraction History of arthroscopy of both knees History of carpal tunnel release History of revision of total replacement of knee joint History of coronary angioplasty with insertion of stent History of bilateral knee replacement History of cardioversion Family History Family History Father Malignant neoplasm of prostate Mother Breast cancer Other Diabetes mellitus Family history of arthritis Hypertension Social History Social History Smoking status: Former smoker Alcohol intake: current Lack of Transportation: No Lack of Food: Never True Current Housing: I Have Housing Concerned About Future Housing: No Difficulty Paying Gas/Electric Bills: No Difficulty Paying for Meds: No Currently Unemployed: No Education: High School Diploma/GED Difficulty w/ Childcare or Family Care: No Exam Narrative: GENERAL: Combative, belligerent, agitated, alert x1 to his name HEAD: Large scalp laceration curvilinear approximately 9 cm to the top of the scalp with dried blood around the scalp and right-sided face EYES: Pupils equal reactive to light, extraocular movements are intact ENT: Nares clear, no rhinorrhea or epistaxis. Mucous membranes moist. NECK: Supple. CHEST: Symmetric chest rise, no respiratory distress, no signs of chest wall trauma HEART: Regular rate and rhythm. No murmur heard. Warm extremities ABDOMEN: Soft nondistended, nontender, no rigidity or guarding EXTREMITIES: Normal range of motion. No edema SKIN: Warm, dry, no rash. NEURO: No focal deficits and moving all extremities. Alert and oriented x1, GCS 14 for confusion PSYCH: Combative and agitated, aggressive and finding staff physically Course Vital Signs Vital signs: Vital Signs Pulse Rate 79 03/24/25 21:25 Respiratory Rate 20 03/24/25 21:25 Blood Pressure 105/83 03/24/25 21:25 Pulse Oximetry 100 03/24/25 21:25 Oxygen Delivery Room Air 03/24/25 21:25 Pulse Rate 94 03/25/25 04:30 Respiratory Rate 20 03/25/25 04:30 Blood Pressure 148/77 H 03/25/25 04:30 Pulse Oximetry 96 03/25/25 04:30 Oxygen Delivery Room Air 03/24/25 21:25 Procedures Laceration Laceration 1: Date: 03/24/25 Time: 22:25 Site: scalp Size (cm): 9 Description: irregular and clean Depth: simple, single layer Local Anesthetic: none Pre-repair: wound explored, irrigated and deep structures intact ====== Skin Level ====== Skin layer closed with: indigo (13 indigo) ====== Subcutaneous Layer ====== ====== Muscle Layer ====== ====== Tendon Layer ====== Dressing: Pressure dressing applied over top, bleeding controlled. MDM - Head Injury MDM Narrative Medical decision making narrative: 74-year-old male with a past medical history including alcohol abuse and recently here in the emergency department on the after a fall secondary to alcohol intoxication with scattered abrasions but no significant findings on workup. Today presents via EMS with police escort secondary to belligerent behavior, mental status changes and suspected alcohol intoxication with head trauma. He has a large laceration to the top of his scalp and dry blood around his scalp and face. Old injury with bruising to his abrasions noted from previous exam on the right side. He is belligerent, combative with staff, swinging at staff and required chemical restraint upon arrival to the emergency department. GCS 15, A&O 1 to his name. Collateral formation provided by EMS and police, patient not cooperative with history or review of systems questions. Further information provided by review of EMR. He was intoxicated several days ago and discharged with police custody after he became combative with staff and unremarkable workup in the ED. Patient required intramuscular Haldol for chemical restraint, [id number] completed at 9:[address] imaging of his head to make sure there is no intracranial abnormality secondary to the traumatic injury, wound will be repaired at bedside, tetanus will be updated. Laboratory studies alcohol level ordered. He was placed on nursing care partner and pulse oximetry. Re-evaluated frequently. Patient is intoxicated with alcohol 271, lacerations repaired with 13 indigo without difficulty. Pressure dressing applied over top. Patient observed in the emergency department for numerous hours with no clinical concerns raised. He was ambulatory multiple times up to the bathroom and now clinically sober upon re-evaluation. His laboratory studies are unrevealing without any leukocytosis or anemia. Normal platelet count. Electrolytes are unremarkable. Normal creatinine, normal glucose, normal LFTs. Head CT shows no acute intracranial abnormality. Patient is safe for discharge at this time. Medical Records Attestation: I reviewed the patient's medical records. Lab Data Attestation: I reviewed the patient's lab results. 03/24/25 21:51 03/24/25 21:51 Labs: Lab Results 03/24/25 03/24/25 Range/Units 21:51 21:53 WBC 10.6 H (4.5-10.0) K/mm3 RBC 4.76 (4.6-6.20) M/mm3 Hgb 14.8 (14.0-18.0) g/dL Hct 45.0 (42.0-52.0) % MCV 94.5 (80-100) fl MCH 31.1 (26-34) pg MCHC 32.9 (32-36) g/dl RDW 16.0 H (11.5-14.5) % Plt Count 255 (150-375) k/mm3 MPV 10.6 H (7.4-10.4) fl Immature Gran % (Auto) 0.4 (0-0.5) % Neut % (Auto) 52.6 (45.5-73.1) % Lymph % (Auto) 36.1 (18.3-44.2) % [place] % (Auto) 9.3 H (2.6-8.5) % Eos % (Auto) 0.8 (0-4.4) % Baso % (Auto) 0.8 (0.2-1.2) % Lymph # (Auto) 3.83 H (0.9-3.2) K/mm3 [place] # (Auto) 1.0 H (0.1-0.6) K/mm3 Eos # (Auto) 0.1 (0-0.3) K/mm3 Baso # (Auto) 0.1 (0.0-0.1) K/mm3 Abs Immat Gran (auto) 0.04 H (0.00-0.031) K/mm3 Absolute Neuts (auto) 5.6 (1.3-6.7) K/mm3 Absolute Nucleated RBC 0.000 (0.0-0.012) K/mm3 Nucleated RBC % 0.0 (0.0-0.2) % Sodium 135 L (137-145) mmol/L Potassium 4.2 (3.4-5.0) mmol/L Chloride 97 L (98-107) mmol/L Carbon Dioxide 26 (22-30) mmol/L Anion Gap 12 (4-12) mmol/L BUN 4 L (9-20) mg/dL Creatinine 0.69 L (0.7-1.3) mg/dL Estim Creat Clear Calc Not Reportable Estimated GFR > 60 (59 - ) Glucose 83 (65-110) mg/dL Calcium 9.0 (8.4-10.2) mg/dL Total Bilirubin 0.7 (0.2-1.3) mg/dL AST 39 (17-59) U/L ALT 20 (6-50) U/L Alkaline Phosphatase 67 (38-126) U/L Total Protein 7.5 (6.3-8.2) g/dL Albumin 4.2 (3.5-5.1) g/dL TSH (Reflex) 2.730 (0.465-4.68) uIU/mL Urine Opiates Screen Pending Urine Methadone Screen Pending Ur Barbiturates Screen Negative (Negative) Ur Phencyclidine Scrn Negative (Negative) Ur Amphetamine Screen Pending U Benzodiazepines Scrn Pending Urine Cocaine Screen Negative (Negative) U Cannabinoids Screen Pending Ethyl Alcohol 271 (<10) mg/dL Imaging Data Attestation: I personally reviewed and interpreted this imaging study as follows: My impression: Impressions Head CT 03/24/25 22:21 IMPRESSION: No acute intracranial process. Restraint Face to Face Eval ED Reason for Restraint Aggressive/Violent Evaluation Findings Date Seen by EDP: 03/24/25 Time Seen by EDP: 21:30 Pt's immediate situation:: Aggressive, combative, fighting staff and spitting at staff, verbally arguing and making threats, belligerent and intoxicated Pt's reaction to intervention:: De-escalated after chemical restraint Pt's med/behavioral condition:: Alcohol intoxication with head trauma cannot exclude intracranial abnormality at this time Restraint or Seclusion Need Need to continue or terminate:: Patient did not require any additional rounds of medications and come down was cooperative throughout the remainder of the night. Discharge Plan Discharge Clinical Impression: Alcohol intoxication, CHI (closed head injury), Complex laceration of scalp Patient Disposition: Home Condition: Stable Instructions: Antibiotic Form, Alcohol Intoxication (ED), Abuse of Alcohol (ED), Staple Care (ED) Additional Instructions: Follow-up in 10-14 days for staple removal. You can return to the emergency department, urgent care or your regular primary doctor to have this done. Keep the area clean and dry. Refrain from drinking alcohol as it is bad for you. Patient Language: Romanian Prescriptions: No Action vitamin B complex [B Complex-Vitamin B12] Tablet 1 tablet PO DAILY ibuprofen 600 mg tablet 600 mg PO TID PRN (Reason: pain) Qty: 20 0RF acetaminophen 500 mg capsule 1,000 mg PO Q6H PRN (Reason: pain) Qty: 20 0RF [place] Saline 0.65 % drops 2 drp intranasal QID PRN (Reason: nasal congestion) Qty: 50 0RF furosemide 40 mg tablet 40 mg PO QAM Qty: 90 1RF levothyroxine 75 mcg tablet See Rx Instructions .ROUTE .COMPLEX Qty: 90 0RF Dose Instruction: TAKE 1 TABLET BY MOUTH DAILY Rx Instructions: TAKE 1 TABLET BY MOUTH DAILY atorvastatin 20 mg tablet 20 mg PO DAILY Qty: 90 0RF Rx Instructions: NEEDS APPOINTMENT FOR FURTHER REFILLS Follow-up/Referrals: Nella Duarte [employer] [Primary Care Provider] - Time of Disposition: 05:38
[2025-03-24 22:01] LABS: Hematocrit 45.0 % (42.0-52.0); Hemoglobin 14.8 g/dL (14.0-18.0); Immature Granulocyte Percent A 0.4 % (0-0.5); Lymphocytes Absolute Auto 3.83 K/mm3 (0.9-3.2); Mean Corpuscular HGB Conc 32.9 g/dl (32-36); Mean Corpuscular Hemoglobin 31.1 pg (26-34); Mean Corpuscular Volume 94.5 fl (80-100); Nucleated Red Blood Cells Absolute Auto 0.000 K/mm3 (0.0-0.012); Nucleated Red Blood Cells Perc 0.0 % (0.0-0.2); Platelet Count Result 255 k/mm3 (150-375); Red Blood Count 4.76 M/mm3 (4.6-6.20); White Blood Count 10.6 K/mm3 (4.5-10.0)
[2025-03-24] MEDS: HALOPERIDOL LACTATE 5 MG/ML VIAL IM (22:01)
[2025-03-24 22:12] LABS: Alanine Aminotransferase 20 U/L (6-50); Albumin Level 4.2 g/dL (3.5-5.1); Alkaline Phosphatase 67 U/L (38-126); Anion Gap 12 mmol/L (4-12); Aspartate Amino Transferase 39 U/L (17-59); Bilirubin,Total 0.7 mg/dL (0.2-1.3); Blood Urea Nitrogen 4 mg/dL (9-20); Calcium 9.0 mg/dL (8.4-10.2); Carbon Dioxide 26 mmol/L (22-30); Chloride 97 mmol/L (98-107); Estimated Glomerular Filt Rate > 60; Glucose 83 mg/dL (65-110); Potassium 4.2 mmol/L (3.4-5.0); Sodium 135 mmol/L (137-145); Total Protein 7.5 g/dL (6.3-8.2)
[2025-03-24 22:43] LABS: Thyroid Stimulating Hormone Reflex 2.730 uIU/mL (0.465-4.68)
[2025-03-25 00:32] VITALS: BP 125/78; PULSE 87; RESP 19; O2SAT 97
[2025-03-25 00:45] VITALS: BP 131/84; PULSE 85; RESP 16; O2SAT 97
[2025-03-25 04:30] VITALS: BP 148/77; PULSE 94; RESP 20; O2SAT 96
[2025-03-25 07:05] LABS: Cannabinoid Screen Urine Negative (Negative)
== END 2025-03-25 06:36 | disposition home or self-care (01) ==
PROVIDERS: Emergency Provider Student in an Organized Health Care Education/Training Program; PCP Nurse Practitioner
DX: S01.01XA Laceration without foreign body of scalp, initial encounter (principal); F10.129 Alcohol abuse with intoxication, unspecified; Y90.8 Blood alcohol level of 240 mg/100 ml or more; I48.20 Chronic atrial fibrillation, unspecified; I25.10 Atherosclerotic heart disease of native coronary artery without angina pectoris; I10 Essential (primary) hypertension; E78.2 Mixed hyperlipidemia; E11.40 Type 2 diabetes mellitus with diabetic neuropathy, unspecified; E03.9 Hypothyroidism, unspecified; M10.9 Gout, unspecified; N40.0 Benign prostatic hyperplasia without lower urinary tract symptoms; G47.33 Obstructive sleep apnea (adult) (pediatric); Z95.5 Presence of coronary angioplasty implant and graft; Z96.653 Presence of artificial knee joint, bilateral; Z98.42 Cataract extraction status, left eye; Z98.41 Cataract extraction status, right eye; Z87.891 Personal history of nicotine dependence; Z79.899 Other long term (current) drug therapy; X58.XXXA Exposure to other specified factors, initial encounter
CPT/HCPCS: 12004; 36415; 70450; 80053; 80307; 82077; 84443; 85025; 96372; 99284; J1630

== ENCOUNTER 2025-04-28 12:42 | Emergency (ER) | payer MEDICARE, SELFPAY ==
[2025-04-28 13:07] VITALS: BP 128/91; PULSE 96; RESP 14; TEMP 36.7; O2SAT 97
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
[2025-04-28 14:19] VITALS: BP 137/91; PULSE 90; RESP 18; O2SAT 100
== END 2025-04-28 14:21 | disposition home or self-care (01) ==
PROVIDERS: Emergency Provider Emergency Medicine; PCP Nurse Practitioner
DX: Z48.02 Encounter for removal of sutures (principal)
CPT/HCPCS: 15853; 99282

== ENCOUNTER 2025-06-30 00:26 | Emergency (ER) | payer MEDICARE, SELFPAY ==
[2025-06-30] VITALS (24 sets, daily range): BP systolic 98–132; BP diastolic 57–103; PULSE 62–94; RESP 12–20; TEMP 36.9; O2SAT 85–100
--- NOTE | ~2025-06-30 | XR_ITS ---
Examination: XR shoulder RT min 2V Clinical History: pain Comparison: None Technique: 3 views right shoulder Findings/impression: 1. Mildly displaced fracture distal clavicle. 2. No fracture or dislocation right shoulder. Reviewed, dictated and finalized at location R.
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
--- NOTE | 2025-06-30 02:08 | PC.NURSE ---
Pt ambulatory to restroom with an unsteady gait, urinating on himself and belligerent to staff. C/o R shoulder pain. States I'd think you guys are smart enough to xray it. Explained to pt that he initially refused treatment upon arrival. Pt agreeable to xray at this time. Dr Duke notified.
--- NOTE | 2025-06-30 05:45 | PC.NURSE ---
Pt woke to use the bathroom noticed he was covered in urine. Offered new clothes and he refused saying, I don't care.
--- NOTE | 2025-06-30 06:33 | PC.NURSE ---
No answer on the first attempt to contact family.
--- NOTE | 2025-06-30 07:09 | PC.NURSE ---
Patient refuses arm sling
--- NOTE | 2025-06-30 07:20 | PC.NURSE ---
Patient refused urinal to pee and ambulated to the restroom with unsteady gate. patient continues to yell at staff and attempting to get out of bed. patient placed on fall alarm for safety. security at bedside.
--- NOTE | 2025-06-30 07:24 | PC.NURSE ---
Number listed for patient's mother not in service.
--- NOTE | 2025-06-30 07:27 | PC.NURSE ---
Per patient, his mother and father are . He was handed his phone that was laying next to him. He is to find his daughter's phone number and call her.
--- NOTE | 2025-06-30 07:30 | PC.NURSE ---
Patient's clothes were wet with urine. Patient let this RN give him scrubs to wear in place of his wet clothes. Linens changed as well due to patient urinating in the bed
--- NOTE | 2025-06-30 07:35 | PC.NURSE ---
Attempted to call patient's daughter, Celsa, with no answer. Voicemail left for her to return my call
--- NOTE | 2025-06-30 07:56 | PC.NURSE ---
ED security called d/t patient being verbally aggresive towards staff.
[2025-06-30] MEDS: HALOPERIDOL LACTATE 5 MG/ML VIAL IM (08:00)
--- NOTE | 2025-06-30 08:00 | PC.NURSE ---
Patient began yelling and attempting to get out of bed. When attempting to deescalate patient he states You're not telling me nothing. I'm walking out of here. Patient refused to get back into bed multiple times after being asked. Security called. Patient given IM Haldol.
[2025-06-30] MEDS: MIDAZOLAM HCL (*CRX) 2 MG/2 ML VIAL 5 MG IM (08:26)
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
--- NOTE | 2025-06-30 08:36 | PC.NURSE ---
Patient resting comfortable at this time. Lights dimmed. Pulse ox placed on patient. Breathing even and non labored.
--- NOTE | 2025-06-30 09:02 | PC.NURSE ---
pt spo2 dipped to 84%, placed on NC 3L - rebounded to 96%
--- NOTE | 2025-06-30 11:08 | PC.NURSE ---
Celsa, daughter called back and states she cannot pick patient up due to living in [place], [place] and not having a vehicle at the moment. She also states patient is currently homeless and has nowhere to live.
--- NOTE | 2025-06-30 11:12 | PC.NURSE ---
Patient daughter states she might be able to come pick patient up when her boyfriend gets off work at 12:15. She will call back after that time and let us know if she is able to pick him up.
== END 2025-06-30 15:20 | disposition home or self-care (01) ==
PROVIDERS: Emergency Provider Student in an Organized Health Care Education/Training Program; PCP Nurse Practitioner
DX: F10.129 Alcohol abuse with intoxication, unspecified (principal); Y90.9 Presence of alcohol in blood, level not specified; S42.031A Displaced fracture of lateral end of right clavicle, initial encounter for closed fracture; I25.10 Atherosclerotic heart disease of native coronary artery without angina pectoris; I48.20 Chronic atrial fibrillation, unspecified; I10 Essential (primary) hypertension; E11.40 Type 2 diabetes mellitus with diabetic neuropathy, unspecified; E03.9 Hypothyroidism, unspecified; E78.2 Mixed hyperlipidemia; N40.0 Benign prostatic hyperplasia without lower urinary tract symptoms; G47.33 Obstructive sleep apnea (adult) (pediatric); M10.9 Gout, unspecified; Z98.41 Cataract extraction status, right eye; Z96.653 Presence of artificial knee joint, bilateral; Z87.891 Personal history of nicotine dependence; Z90.81 Acquired absence of spleen; Z98.42 Cataract extraction status, left eye; Z95.5 Presence of coronary angioplasty implant and graft; Z79.899 Other long term (current) drug therapy; X58.XXXA Exposure to other specified factors, initial encounter
CPT/HCPCS: 73030; 99283; J1630; J2250

== ENCOUNTER 2025-08-19 15:41 | Emergency (ER) | payer MEDICARE, SELFPAY ==
[2025-08-19 15:43] VITALS: BP 121/82; PULSE 82; RESP 24; TEMP 36.8; O2SAT 100
[2025-08-19 16:03] LABS: Hematocrit 45.0 % (42.0-52.0); Hemoglobin 14.9 g/dL (14.0-18.0); Mean Corpuscular HGB Conc 33.1 g/dl (32-36); Mean Corpuscular Hemoglobin 30.2 pg (26-34); Mean Corpuscular Volume 91.1 fl (80-100); Platelet Count Result 282 k/mm3 (150-375); Red Blood Count 4.94 M/mm3 (4.6-6.20); White Blood Count 6.4 K/mm3 (4.5-10.0)
[2025-08-19 16:24] LABS: Alanine Aminotransferase 34 U/L (6-50); Albumin Level 3.8 g/dL (3.5-5.1); Alkaline Phosphatase 102 U/L (38-126); Anion Gap 1 mmol/L (4-12); Aspartate Amino Transferase 40 U/L (17-59); Bilirubin,Total 0.6 mg/dL (0.2-1.3); Blood Urea Nitrogen 10 mg/dL (9-20); Calcium 9.6 mg/dL (8.4-10.2); Carbon Dioxide 35 mmol/L (22-30); Chloride 102 mmol/L (98-107); Estimated Glomerular Filt Rate > 60; Glucose 116 mg/dL (65-110); Potassium 3.8 mmol/L (3.4-5.0); Sodium 138 mmol/L (137-145); Total Protein 7.6 g/dL (6.3-8.2)
[2025-08-19 16:36] LABS: Basophils Absolute Manual 0.06 K/mm3 (0.0-0.1); Basophils Percent Manual 1 % (0-1); Eosinophils Absolute Manual 0.19 K/mm3 (0.02-0.50); Eosinophils Percent Manual 3 % (0-4); Lymphocytes Absolute Manual 2.81 K/mm3 (1.1-4.5); Lymphocytes Percent Manual 44.0 % (18-44); Monocytes Absolute Manual 0.25 K/mm3 (0.1-0.90); Monocytes Percent Manual 4 % (3-9); Neutrophils Percent Manual 48 % (46-73); Total Cells Counted 100
[2025-08-19 16:37] LABS: Anisocytosis 1+; Schistocytes None Seen
[2025-08-19 16:48] LABS: Band Neutrophils Percent 0 % (0-6); Neutrophils Absolute Manual 3.07 K/mm3 (1.3-6.7)
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
[2025-08-19 18:06] VITALS: BP 126/84; PULSE 72; RESP 16; O2SAT 98
== END 2025-08-19 18:07 ==
PROVIDERS: Emergency Provider Emergency Medicine; PCP Nurse Practitioner
DX: Z03.89 Encounter for observation for other suspected diseases and conditions ruled out (principal); I25.10 Atherosclerotic heart disease of native coronary artery without angina pectoris; I48.20 Chronic atrial fibrillation, unspecified; I10 Essential (primary) hypertension; E03.9 Hypothyroidism, unspecified; E78.2 Mixed hyperlipidemia; E11.40 Type 2 diabetes mellitus with diabetic neuropathy, unspecified; N40.0 Benign prostatic hyperplasia without lower urinary tract symptoms; G47.33 Obstructive sleep apnea (adult) (pediatric); M10.9 Gout, unspecified; Z96.653 Presence of artificial knee joint, bilateral; Z95.5 Presence of coronary angioplasty implant and graft; Z86.16 Personal history of COVID-19; Z87.891 Personal history of nicotine dependence; Z90.81 Acquired absence of spleen; Z79.899 Other long term (current) drug therapy
CPT/HCPCS: 36415; 80053; 85025; 99283